=== PATIENT | male | born 1970 | race Caucasian/White ===

== ENCOUNTER 2018-02-22 12:11 | Outpatient (CLI) | payer MEDICAID, SELFPAY ==
[2018-02-22 13:35] LABS: Cholesterol 179 mg/dL (50-200); Glucose 81 mg/dL (70-100); HDL Cholesterol 40 mg/dL (40-60); LDL CHOLESTEROL 128 mg/dL (<100); Triglyceride 136 mg/dL (30-150)
== END 2018-02-22 12:31 ==
PROVIDERS: PCP General Practice; Visit Provider General Practice
DX: R51 Headache (principal); Z13.220 Encounter for screening for lipoid disorders; Z13.1 Encounter for screening for diabetes mellitus
CPT/HCPCS: 36415; 80061; 82947; 83721

== ENCOUNTER 2018-03-29 14:35 | Outpatient (CLI) | payer MEDICAID, SELFPAY ==
--- NOTE | 2018-03-29 14:23 | DI.RAD_ITS ---
SYMPTOMS/DIAGNOSIS: PAIN ZAIRA SHOULDERS AND LT ELBOW LEFT SHOULDER: Allowing for artifact generated by the patient's clothing, no bony or joint abnormality is seen. LEFT ELBOW: No bony or joint abnormality is demonstrated. RIGHT SHOULDER: The bony structures and joint spaces appear intact. There is a small area of calcification adjacent to the greater tuberosity which would be consistent with peritendinitis calcarea.
== END 2018-03-29 14:55 ==
PROVIDERS: PCP General Practice; Visit Provider Physician Assistant
DX: M25.511 Pain in right shoulder (principal); M25.512 Pain in left shoulder; M25.522 Pain in left elbow
CPT/HCPCS: 73030; 73080

== ENCOUNTER 2018-07-31 15:26 | Outpatient (CLI) | payer MEDICAID, SELFPAY ==
--- NOTE | 2018-07-31 15:24 | DI.RAD_ITS ---
SYMPTOM/DIAGNOSIS: NECK PAIN CERVICAL SPINE: Frontal and lateral views were obtained. There are no priors for comparison. There is normal alignment. No acute fractures or subluxations are seen. The prevertebral soft tissues are unremarkable. IMPRESSION: Negative examination.
== END 2018-07-31 15:46 ==
PROVIDERS: PCP General Practice; Visit Provider Student in an Organized Health Care Education/Training Program
DX: M54.2 Cervicalgia (principal)
CPT/HCPCS: 72040

== ENCOUNTER 2018-08-09 00:16 | Outpatient (CLI) | payer MEDICAID, SELFPAY ==
--- NOTE | 2018-08-09 14:53 | DI.MRI_ITS ---
SYMPTOMS/DIAGNOSIS: LEFT ANTERIOR SHOULDER PAIN, M25.512, LEFT SHOULDER LESIONS, M75.82, TENDINITIS OF ROTATOR CUFF MRI OF THE LEFT SHOULDER: Routine noncontrast examination was performed. Comparison x-ray is 03/29/18. There is hyperintense signal seen in the supraspinatus tendon in its mid point suspicious for a partial tear and/or tendinosis. The infraspinatus, teres minor and subscapularis tendons are intact. The muscles show normal signal and size. No significant muscular fatty atrophy is appreciated. The glenoid labrum appears grossly unremarkable on this noncontrast examination. The biceps tendon has a normal appearance and location. There are mild degenerative changes seen at the acromioclavicular joint. No findings to suggest an occult fracture or avascular necrosis. There is a normal amount of fluid seen in the joint space. No soft tissue masses appreciated. There is a small amount of fluid seen in the subacromial bursa. The articular cartilage at the glenohumeral joint appears well maintained. IMPRESSION: 1. Tendinosis versus partial tear of the supraspinatus tendon. 2. Degenerative changes seen at the acromioclavicular joint.
== END 2018-08-09 00:36 ==
PROVIDERS: PCP General Practice; Visit Provider Student in an Organized Health Care Education/Training Program
DX: M25.512 Pain in left shoulder (principal); M75.82 Other shoulder lesions, left shoulder; M19.012 Primary osteoarthritis, left shoulder
CPT/HCPCS: 73221

== ENCOUNTER 2018-08-24 01:21 | Outpatient (CLI) | payer MEDICAID, SELFPAY ==
--- NOTE | 2018-08-24 11:12 | DI.RAD_ITS ---
SYMPTOM/DIAGNOSIS: LT SHOULDER INJECTION, TENDINITIS LT ROTATOR CUFF M75.82 LEFT SHOULDER INJECTION' Fluoroscopy Time: 18.5 Fluoroscopy was utilized by Dr. Pearson during the performance of a left shoulder injection. Please refer to the procedure report for complete details.
[2018-08-24] MEDS: Omnipaque 300 MG/ML 10 ML BTL IJ (11:14)
[2018-08-24] MEDS: methylPREDNISolone ACETATE 80 MG/ML VIAL IM (11:16)
[2018-08-24] MEDS: Bupivacaine 0.5% Pres-Free 10 ML VIAL 6 ML IJ (11:16)
--- NOTE | 2018-08-29 15:18 | W.PROCNOTE ---
Date of service: 08/24/18 Time of Service: 11:18 Procedure Note Date of procedure: 08/24/18 Procedure: Left Shoulder Injection Surgeon/Proceduralist/Physician: Yovany Pearson Procedure Diagnosis: Left Rotator Cuff Tendinitis Procedure Indications: Mo has had persistent pain of the LEFT shoulder. Noninvasive measures have been tried. To serve as both diagnostic and therapeutic, an injection under fluoroscopy was recommended. I had discussed the risks of the procedure and the patient elected to proceed. Procedure Description: Mo was greeted in the flouroscopy room. The correct side was identified and the consent was reviewed with the patient and signed. The patient was then placed in the supine position on the fluoroscopy table. The LEFT shoulder was then prepped with Chloraprep. The anterior injection starting point was identiifed by bony landmarks and fluoroscopy. The skin and soft tissue in the tract of the injection was anesthetized with 1% Lidocaine. A spinal needle was then inserted deep into the shoulder joint at the level of the recess between the glenoid and superior humeral head. A small amount of Omnipaque solution was injected to confirm intraarticular placement. Once confirmed, the shoulder was injected with 4cc of 0.5% Bupivicaine and 80mg of Depo-Medrol. A bandaid was placed on the injection site. The patient tolerated the procedure well and noted improvement in pre-injection pain.
== END 2018-08-24 01:41 ==
PROVIDERS: PCP General Practice; Visit Provider Student in an Organized Health Care Education/Training Program
DX: M25.512 Pain in left shoulder (principal); M75.82 Other shoulder lesions, left shoulder
CPT/HCPCS: 20610; 77002; J1040

== ENCOUNTER 2018-09-07 00:35 | Outpatient (CLI) | payer MEDICAID, SELFPAY ==
--- NOTE | 2018-09-07 06:44 | DI.RAD_ITS ---
SYMPTOM/DIAGNOSIS: TENDINITIS RT ROTATOR CUFF, M75.81, OTHER SHOULDER LESION, RT, RT SHOULDER INJECTION RIGHT SHOULDER INJECTION: Fluoroscopy Time: 4 seconds A frontal image of the right shoulder reveals a joint injection by Dr. Pearson. Please see the procedure report for further information.
[2018-09-07] MEDS: Bupivacaine 0.5% Pres-Free 10 ML VIAL 6 ML IJ (09:10)
[2018-09-07] MEDS: methylPREDNISolone ACETATE 80 MG/ML VIAL IM (09:11)
[2018-09-07] MEDS: Omnipaque 300 MG/ML 10 ML BTL IJ (09:11)
--- NOTE | 2018-09-07 09:51 | W.PROCNOTE ---
Date of service: 09/07/18 Time of Service: 09:51 Procedure Note Date of procedure: 09/07/18 Procedure: Right Shoulder Injection Surgeon/Proceduralist/Physician: Yovany Pearson Procedure Diagnosis: Right rotator cuff tendinitis Procedure Indications: Mo has had persistent pain of the RIGHT shoulder. Noninvasive measures have been tried. He has had pain of both shoulders and recently had a left shoulder injected with excellent results. To serve as both diagnostic and therapeutic, an injection under fluoroscopy was recommended. I had discussed the risks of the procedure and the patient elected to proceed. Procedure Description: Mo was greeted in the flouroscopy room. The correct side was identified and the consent was reviewed with the patient and signed. The patient was then placed in the supine position on the fluoroscopy table. The RIGHT shoulder was then prepped with Chloraprep. The anterior injection starting point was identiifed by bony landmarks and fluoroscopy. The skin and soft tissue in the tract of the injection was anesthetized with 1% Lidocaine. A spinal needle was then inserted deep into the shoulder joint at the level of the recess between the glenoid and superior humeral head. A small amount of Omnipaque solution was injected to confirm intraarticular placement. Once confirmed, the shoulder was injected with 4cc of 0.5% Bupivicaine and 80mg of Depo-Medrol. A bandaid was placed on the injection site. The patient tolerated the procedure well and noted improvement in pre-injection pain.
== END 2018-09-07 00:55 ==
PROVIDERS: PCP General Practice; Visit Provider Student in an Organized Health Care Education/Training Program
DX: M25.511 Pain in right shoulder (principal); M75.81 Other shoulder lesions, right shoulder
CPT/HCPCS: 20610; 77002; J1040

== ENCOUNTER 2020-09-15 04:07 | Outpatient (CLI) | payer MEDICAID, SELFPAY ==
[2020-09-15 09:53] LABS: Source Nasal/Nares
[2020-09-15 15:17] LABS: COVID-19 PCR Positive (Negative)
== END 2020-09-15 04:08 | disposition home or self-care (01) ==
LOC: LBO 04:07
PROVIDERS: PCP Registered Nurse; Visit Provider Surgery
DX: Z20.822 Contact with and (suspected) exposure to COVID-19 (principal); Z01.818 Encounter for other preprocedural examination
CPT/HCPCS: 87635

== ENCOUNTER 2020-10-14 06:09 | Day surgery (SDC) | payer MEDICAID, SELFPAY ==
--- NOTE | 2020-10-13 16:08 | HPE_ITS ---
Date of service: 10/14/20 Time of Service: 07:15 Assessment and Plan Assessment and plan (1) Reducible right inguinal hernia: Status: Acute Assessment and plan: I discussed the nature of inguinal hernias with the pt . I discussed the surgery in detail and the complications related to the surgery and the anesthesia. Pt. understands this, all questions were answered to the patient satisfaction and they signed the consent for surgery. Patient was given an educational booklet. Risks of the surgery include but are not limited to: Bleeding/infection/pneumonia/damage to blood vessels or bladder or bowels/blood clots or PE/chronic pain/urinary retention/chronic numbness/reoccurrence/reaction to mesh requiring removal/damage to testicle or sterility/complications of anesthesia. The pt will have a pre-Op PE with his/her PCP to ensure fitness for anesthesia. The procedure will be done with abx and under sterile conditions. The pt requires a ride home from surgery and someone to stay with the pt for 24 hrs after anesthesia. No lifting over 5 pounds for 2 weeks after surgery. History of Present Illness Consults Consult date: 10/14/20 Narrative: He does heavy lifting. He is having mild discomfort. He denies straiing to move his bowels or urinate. He is a reformed smoker. No problems w/ anesthesia. He is a reformed smoker He thinks it started around the holidays. There was not one specific event. He has noticed a bulge. He did have covid and we had to re-schedule his repair He has no residual affects from covid. He has had mild pain in his hernia. site is marked all questions stable for procedure. Review of Systems All systems reviewed & are unremarkable except as noted in HPI and below PFSH Medical History (Updated 10/14/20 @ 06:33 by Simi Barahona RN) Abstains from alcohol consumption Ex-smoker Genital herpes simplex H/O fracture of tibia L Tib/Fib ORIF, metal removed Right inguinal hernia S/P ORIF (open reduction internal fixation) fracture Left tibia/fibula Surgical History History of vasectomy Social History Smoking/Tobacco Use Status: Former Tobacco Use Quit Date: 06/13/05 Smoking risk assessment performed?: Yes Alcohol Intake: never Drug use: Never Substance use type: does not use Household members: spouse and children Housing: house Number of Children: 3 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 Meds Allergies and Home Medications Allergies Allergy/AdvReac Type Severity Reaction Status Date / Time Penicillins Allergy as a child Verified 10/14/20 06:33 codeine AdvReac Nausea Verified 10/14/20 06:33 Home Medications Medication Instructions Recorded Confirmed Type valacyclovir 500 mg tablet 500 mg PO DAILY 09/14/18 10/14/20 History cholecalciferol (vitamin D3) 50 150 mcg PO DAILY cap 09/01/20 10/14/20 History mcg (2,000 unit) capsule magnesium 250 mg tablet 250 mg PO DAILY 09/01/20 10/14/20 History multivitamin 1 tab PO DAILY 09/01/20 10/14/20 History zinc 50 mg tablet 50 mg PO DAILY 09/01/20 10/14/20 History Exam Const General: cooperative, healthy appearing, comfortable, no acute distress, well developed and well groomed Nutritional Appearance: average body habitus and well nourished Orientation: alert, awake and oriented x3 HENMT Head: normal to inspection, normocephalic and atraumatic Ears: hearing grossly normal bilaterally and external ears normal General nose exam: external nose normal Face and sinus: normal facial exam and sinuses nontender Mouth: oral mucosae normal, lip normal, tongue normal and moist mucous membranes Teeth and gingiva: dentition normal Eyes General: appearance normal, both eyes and all related structures Conjunctivae: conjunctivae normal Sclera: sclerae normal Pupils: PERRL Neck Neck: normal visual inspection and full ROM Chest Chest: normal inspection of the chest Resp Effort & Inspection: normal respiratory effort, able to speak in complete sentences, no cough, no nasal flaring, not tachypneic and no use of accessory mu scles Auscultation: clear to auscultation bilaterally, no rales, no rhonchi and no wheezes Cardio Jugular venous pressure: no JVD Rate: regular rate Rhythm: regular rhythm GI Inspection: normal to inspection, no edema and non-distended Palpation: soft, no masses, nontender and No ascites Auscultation: normal bowel sounds Other: right inguinal hernia Skin General skin exam: no rashes or lesions noted Trauma: no lacerations or abrasions Neuro General: patient alert, patient oriented x3, oriented, gait normal, moves all extremities, no focal motor deficits and CN's II-XI intact bilaterally Cognition: normal cognition Speech: speech normal Gait: normal gait Motor: muscle tone normal throughout Extrem General: normal to inspection, full ROM and no clubbing, cyanosis or edema Psych Appearance: grossly normal and well kempt Mental Status: mental status grossly normal Speech and Movement: speech and movement normal Affect: normal affect COVID-19 Screening Have you, or household traveled for leisure in last 14 days?: No Had IN PERSON contact w/suspected or confirmed C-19 person: No
[2020-10-14] VITALS (9 sets, daily range): BP systolic 94–114; BP diastolic 54–74; PULSE 58–80; RESP 12–16; TEMP 36–36.6; O2SAT 94–99; BMI 26.7
[2020-10-14] MEDS: Acetaminophen 500 MG TAB 1000 MG PO (06:45)
[2020-10-14] MEDS: Gabapentin 300 MG CAP PO (06:45)
[2020-10-14] MEDS: Lactated Ringers 1,000 ML 80 ML IV (06:59)
--- NOTE | 2020-10-14 07:02 | W.ANESPRE ---
General Info Date of Service Date Performed: 10/14/20 Height: 6 ft 2 in Weight: 94.4 kg Body Mass Index (BMI): 26.7 Surgical Procedure: Operation Date: 10/14/20 07:40 Proposed Procedures Side Surgeon p Herniorraphy Inguinal Right Lacie Salmeron, Meds Allergies and Home Medications Allergies Allergy/AdvReac Type Severity Reaction Status Date / Time Penicillins Allergy as a child Verified 10/14/20 06:33 codeine AdvReac Nausea Verified 10/14/20 06:33 Home Medication Medication Instructions Recorded valacyclovir 500 mg tablet 500 mg PO DAILY 09/14/18 cholecalciferol (vitamin D3) 50 150 mcg PO DAILY cap 09/01/20 mcg (2,000 unit) capsule magnesium 250 mg tablet 250 mg PO DAILY 09/01/20 multivitamin 1 tab PO DAILY 09/01/20 zinc 50 mg tablet 50 mg PO DAILY 09/01/20 Current Visit Medications: Current Medications Generic Name Dose Route Start Last Admin Trade Name Freq PRN Reason Stop Dose Admin Acetaminophen 1,000 mg 10/14/20 06:00 10/14/20 06:45 Acetaminophen 500 Mg Tab PO 11/12/20 23:59 1,000 mg PREOP KATALINA Administration Gabapentin 300 mg 10/14/20 06:00 10/14/20 06:45 Gabapentin 300 Mg Cap PO 11/12/20 23:59 300 mg PREOP KATALINA Administration Ringer's Solution 1,000 mls @ 80 mls/hr 09/16/20 06:00 10/14/20 06:59 IV 10/15/20 23:59 80 mls/hr INFUSION KATALINA Administration Clindamycin Phosphate/Dextrose 600 mg in 50 mls @ 100 mls/hr 10/14/20 06:00 Cleocin In D5w IVPB 10/14/20 23:59 PREOP KATALINA IV Miscellaneous Supplies 1 each 09/16/20 06:00 Iv Access IV 10/15/20 23:59 DIRECTED KATALINA Sodium Chloride 0 ml 09/16/20 06:00 Normal Saline Flush 10 Ml Syr IV 10/15/20 23:59 PRN PRN Sodium Chloride 0 ml 09/16/20 06:00 Normal Saline 10 Ml Vial IJ 10/15/20 23:59 DIRECTED PRN Sterile Water 0 ml 09/16/20 06:00 Water,Injection,Sterile 10 Ml Vial IJ 10/15/20 23:59 DIRECTED PRN PFSH Active Problems Active Problems: Problem Status Onset Code Tendinitis of left rotator cuff M75.82 Tendinitis of right rotator cuff M75.81 Left lateral epicondylitis M77.12 Reducible right inguinal hernia K40.90 Medical History Medical History (Updated 10/14/20 @ 06:33 by Simi Barahona, EDOUARD) Abstains from alcohol consumption Ex-smoker Genital herpes simplex H/O fracture of tibia L Tib/Fib ORIF, metal removed Right inguinal hernia S/P ORIF (open reduction internal fixation) fracture Left tibia/fibula Surgical History Surgical History History of vasectomy Tobacco Smoking/Tobacco Use Status: Former Tobacco Use Alcohol Alcohol Intake: never Substance Use Substance use: Never Substance use type: does not use Vital Signs and Lab Results Vital Signs Most Recent Vital Signs in EMR: Most Recent Vital Signs Temp Pulse Resp BP Pulse Ox 36.4 C L 80 16 114/74 97 10/14/20 06:24 10/14/20 06:24 10/14/20 06:24 10/14/20 06:24 10/14/20 06:24 Lab Results Blood Type / Crossmatch: No Data to Display Complete Blood Count: No Data to Display Complete Metabolic Panel: Glucose Level 81 mg/dL (70-100) 02/22/18 12:30 02/22/18 Liver Function Panel: No Data to Display Coagulation Panel: No Data to Display Cardiac Panel: No Data to Display Arterial Blood Gas: No Data to Display Venous Blood Gas: No Data to Display Pancreas Panel: No Data to Display Thyroid Panel: No Data to Display Infectious Disease: Coronavirus (COVID-19)(PCR) Positive (Negative) A* 09/15/20 08:51 09/15/20 Coronavirus 2019 Source Nasal/nares 09/15/20 08:51 09/15/20 Blood Cultures: No Data to Display Toxicology Panel: No Data to Display Anesthesia Assessment and Plan Anesthesia History Personal History: No History of Anesthesia Complications Family History: No Family History of Anesthesia Complications Exercise Tolerance Exercise Tolerance: Metabolic Equivalents>4 Pertinent Negatives Pertinent Negatives: No Symptoms of GERD and No Major Cardiovascular Symptoms or Complaints Cardiac & Pulmonary Exam Cardiac Exam: Normal S1/S2 Heart Sounds Pulmonary Exam: Clear Bilateral Breath Sounds and Seasonal Allergies Airway Exam Known Difficult Airway: No Mallampati Class: 2 Mouth Opening: Normal (> 3cm) Thyromental Distance: Greater than 3 cm Neck Range of Motion: Full ROM Neck Circumference: Normal Teeth Condition: Normal Dentition ASA Classification ASA Score: ASA 2 ASA Emergency: No NPO Status NPO Status: NPO Clears >2 hours, Solids >8 hours Anesthesia Plan Anesthesia Technique: General Anesthesia Airway Planned: LMA Pain Management: Surgeon and patient request nerve block Monitors Used: Standard Monitors
[2020-10-14] MEDS: ceFAZolin 2 GM/50 ML BAG IVPB (07:40)
--- NOTE | 2020-10-14 07:58 | DSU.FORM ---
While patient went to empty his bladder prior to going to the OR, the ABX Clindamycin 600mg fell and the tubing came out of the bag which emptied all over the floor. Pharmacy informed (Elzbieta). Dr. Salmeron changed order to Ancef 2 grams which was pulled out of the Pyxis and brought to the OR by Robert Kyle RN.
--- NOTE | 2020-10-14 08:19 | W.ANESNERVE ---
Nerve Block Single Injection Procedure Date and Time Date Performed: 10/14/20 Procedure Start: 07:53 Location Where Procedure Performed Procedure Location: Operating Room Procedure Stop: 07:58 Reason Performed: Postoperative Analgesia Requesting Provider: Lacie Salmeron Timeout Performed Timeout Performed: Yes Monitoring Used ECG, Blood Pressure, SpO2, ETCO2 and See EMR for corresponding vital signs Sterility Sterility: Hand Hygiene, Surgical Cap, Surgical Mask, Sterile Gloves and Chlorhexidine Sedation Given During Procedure Sedation Given (Indicate Dose Given): No Sedation given Patient Mental Status Patient Mental Status: Performed under general anesthesia Nerve Block 1st Nerve Block: Laterality: Right Block Type: TAP Unilateral Needle / Catheter Used: 100mm SonoPlex II Local Anesthetic Bolus (Indicate Dose Given): Injected in 3-5ml increments after negative blood aspiration, Bupivacaine 0.25% (30ml) and Exparel (10ml) Additives (Indicate Dose Given): None Ultrasound: Sterile probe cover and gel used Ultrasound Image Saved?: Yes Nerve Stimulator: Not Used Paresthesia: None Procedure Tolerated: No Complications Procedure Outcome: Successful Performed By: Caio Loredo
[2020-10-14] MEDS: Bupivacaine LIPOSOME/PF 133 MG/10 ML VIAL IJ (08:51)
[2020-10-14] MEDS: Bupivacaine 0.25% Pres-Free 30 ML VIAL (08:54)
--- NOTE | 2020-10-14 09:14 | PDOC.DSDIS_ITS ---
Discharge Plan Disposition Patient Disposition: HOME Condition: Good Discharge Details Reason For Visit: HERNIA REPAIR Attending Provider: Lacie Salmeron Primary Care Provider: Carolynn Rodriges Home Meds and New Rx's Prescriptions: New tramadol 50 mg tablet 50 mg PO Q6H PRNQty: 14 RF: 0 Continued valacyclovir [Valtrex] 500 mg tablet 500 mg PO DAILY RF: 0 cholecalciferol (vitamin D3) 50 mcg (2,000 unit) capsule 150 mcg PO DAILY RF: 0 multivitamin [Multiple Vitamins] Tablet 1 tab PO DAILY RF: 0 magnesium 250 mg tablet 250 mg PO DAILY RF: 0 zinc 50 mg tablet 50 mg PO DAILY RF: 0 Discharge Instructions Additional Instructions: Dr. Salmeron HERNIA REPAIR ? POSTOPERATIVE INSTRUCTIONS Patients who have this type of surgery can usually be expected to return to work within two weeks and have minimal amounts of discomfort. ? ACTIVITY: The day of surgery should be spent resting. However, you can be up for short periods of time, I.E., going to the bathroom or kitchen. Avoid lifting or straining. On the day following surgery, you can be up and about as desired. ? LIFTING: Restrict your lifting to no more than five (5) pounds for the first week following surgery. For the second week after surgery, don?t lift more than ten pounds. We will decide when you are done with restrictions and when you can return to work, at your follow-up appointment. No sexual activity for two we eks. ? DIET: There are no dietary restrictions following surgery. However, you may want to start with small amounts of liquids to avoid nausea the day of surgery. ? INCISION CARE: You will notice purple skin glue closing the incision. Do not peel this off- it will wear off on its own. After 24 hours you may shower. The dressing may be replaced for comfort, but is not necessary. An ice bag may be applied to the incision for 72 hours following surgery. ? SIGNS OF INFECTION: It is not unusual to have some black and blue discoloration of the skin around the incision, but also scrotum and penis. It will slowly disappear. If you have any increased redness, drainage, fever (above 100 degrees), please contact your doctor for an examination. ? DISCOMFORT: You may expect to have some mild discomfort at the incision sight. If severe pain develops you should contact your doctor for further instructions. ? URINATION: Patients who have surgery occasionally have problems urinating. If you experience problems and are not able to urinate within 6 hours following your surgery, please call your doctor immediately or go to your nearest Emergency Room for evaluation. ? DRIVING: NO driving for three (3) days after surgery, or if you are still taking narcotic pain medication. ? MEDICATIONS: Alternate Tylenol 1000mg by mouth every 8 hours and Ibuprofen 600mg every 6 hours. Make sure you take ibuprofen with food and not on an empty stomach. Take the Tylenol and ibuprofen continuously for the first 72hrs- not just when you have pain. Use the tramadol for breakthrough pain. Use ICE! Tw enty minutes on, and then off, continuously for the first 72hours. If you are taking narcotic pain medication, follow the instructions on the label and do not drive. Pain medications can make you very constipated. Make sure you are moving your bowels daily. If not, take Miralax, milk of magnesia or magnesium citrate. Anesthesia makes you very constipated. Take a dose of milk of magnesia the mor wilian after surgery. ? REPORT: Unusual swelling, severe pain, unresolved nausea, signs of infection, or difficulty in urination to your surgeon. Follow up in clinic with Dr. Salmeron in 1-2 weeks. [phone] Activity:: see above Remove Dressings/Wound Care:: 24 hours Shower/Bathe:: 24 hours Diet:: As Tolerated Discharge Orders Discharge Orders: Discharge Order (Routine); Ordered 10/14/20 Ordered By: Lacie Salmeron DS: Diagnosis Discharge Diagnosis (1) Reducible right inguinal hernia: Status: Acute
--- NOTE | 2020-10-14 09:19 | ROE_ITS ---
Date of service: 10/14/20 Time of Service: 09:19 Operative Note Operative Note DATE OF PROCEDURE: 10/14/20 PRE-OP DIAGNOSIS: right inguinal hernia POST-OP DIAGNOSIS: other (indirect ) PROCEDURE: open repair w/ mesh SURGEON: Lacie Zambrano ANESTHESIA TYPE: General LMA/ETT Refer to Anesthesia Record ESTIMATED BLOOD LOSS: 5 PATHOLOGY: none sent COMPLICATIONS: None Patient was transported to: PACU Patient's condition: stable Implants: see Rn notes Procedure Description: INDICATIONS: The pt is here today for surgery regarding symptomatic right inguinal hernia that has failed outpatient conservative medical management and he is here today for repair. Informed consent was obtained, explaining risks and benefits of the procedure including but not limited to bleeding, infection, pneumonia, blood clots, chronic pain, chronic numbness, damage to testicle resulting in removal, recurrence of hernia, reaction to Mesh necessitating removal, and other unforetold complications, and complications of anesthesia-which were addressed by the DIRECT SUPPORT SPECIALIST. The patient is marked in preOp prior to the procedure DESCRIPTION OF PROCEDURE: The pt is then brought to the operative room suite. Anesthesia was administered per the Department of Anesthesia. A nerve block was performed by anesthesia under US guidance. The patient was prepped and draped in the usual sterile fashion using ChloraPrep scrub solution. Pause for the cause was done. He did receive preop IV antibiotics, and 30 mL of .25% Marcaine w/ epinephrine was used for local anesthetization. A #12 blade was used to make an incision over the external ring. Electrocautery used to provide hemostasis and dissect down to the fascia. The fascia was pretty much obliterated and there was nothing to open. The cord is elevated. The nerve was not identified. There small is a cord lipomas- which is excised. Electro-cautery is used to provide hemostasis. A Prabha drain was placed around the cord to assist in mobilization. The cord was explored. There was is an indirect hernia sac on the cord. There is no direct hernia pushing through the floor. The hernia sac is dissected off the cord using a combination of blunt dissection and electrocautery. Electrocautery is used to provide hemostasis. There are no contents within the hernia sac. The hernia sac is than inverted and returned to the abdominal cavity. A lg size plug is than inserted into the defect through the internal ring, and over sewn to tighten up the ring with 2-0 vicryl. Please see RN notes from Lot number of the Bard mesh patch/plug. The cord structures are still able to freely move through the ring itself. The patch was then placed onto the floor, and using 2-0 Vicryl, sewn into the pubic tubercle and the shelving portions of the inguinal ligament, in the standard Lichenstein fashion. The tails of the mesh are brought around the cord, sewn together w/ 2-0 Vicryl, and tucked under the external oblique. The wound was copiously irrigated. There was no bleeding noted. The drain was removed. All structures are returned to normal anatomical position. The nerve is not sewn into the mesh, nor caught up in any sutures. The external oblique is re-approximated using 2-0 vicryl in a running fashion. Deep tissue was approximated with 3-0 Vicryl in a running fashion, and skin was approximated with 4-0 Monocryl in a running subcuticular fashion. Skin glue and sterile dressings are applied. The patient tolerated the procedure without complications to recovery in stable condition. LACIE ZAMBRANO, DO
[2020-10-14] MEDS: traMADol 50 MG TAB PO (10:41)
--- NOTE | 2020-10-14 10:42 | W.ANESPOSTOP ---
Postoperative Evaluation Date, Time and Location Date Performed: 10/14/20 Time Performed: 10:42 Patient Location: Day Surgery Unit Vital Signs Most Recent Imported Vital Signs: Most Recent Vital Signs Temp Pulse Resp BP Pulse Ox 36.0 C L 63 16 100/67 99 10/14/20 09:59 10/14/20 09:59 10/14/20 09:59 10/14/20 09:59 10/14/20 09:59 Pain Score Most Recent Pain Score: Most Recent Pain Score Pain Level 0 10/14/20 09:47 Assessment Mental Status: Awake (Alert & Oriented to Patient Baseline) Airway and Respiratory Function: Patent airway with normal (patient baseline) respiratory exam Cardiovascular Function: Hemodynamically Stable Hydration Status: Adequately Hydrated Nausea & Vomiting: No Nausea or Vomiting Pain: Pt. Denies Any Pain Peripheral Nerve Block: Regional nerve block not resolved at time of post operative discharge
--- NOTE | 2020-10-14 11:04 | PDOC.DSDIS_ITS ---
Discharge Plan Disposition Patient Disposition: HOME Condition: Good Discharge Details Reason For Visit: HERNIA REPAIR Attending Provider: Lacie Salmeron Primary Care Provider: Carolynn Rodriges Home Meds and New Rx's Prescriptions: New oxycodone 5 mg capsule 5 mg PO Q6H PRNQty: 10 RF: 0 Continued valacyclovir [Valtrex] 500 mg tablet 500 mg PO DAILY RF: 0 cholecalciferol (vitamin D3) 50 mcg (2,000 unit) capsule 150 mcg PO DAILY RF: 0 multivitamin [Multiple Vitamins] Tablet 1 tab PO DAILY RF: 0 magnesium 250 mg tablet 250 mg PO DAILY RF: 0 zinc 50 mg tablet 50 mg PO DAILY RF: 0 Discharge Instructions Additional Instructions: Dr. Salmeron HERNIA REPAIR ? POSTOPERATIVE INSTRUCTIONS Patients who have this type of surgery can usually be expected to return to work within two weeks and have minimal amounts of discomfort. ? ACTIVITY: The day of surgery should be spent resting. However, you can be up for short periods of time, I.E., going to the bathroom or kitchen. Avoid lifting or straining. On the day following surgery, you can be up and about as desired. ? LIFTING: Restrict your lifting to no more than five (5) pounds for the first week following surgery. For the second week after surgery, don?t lift more than ten pounds. We will decide when you are done with restrictions and when you can return to work, at your follow-up appointment. No sexual activity for two we eks. ? DIET: There are no dietary restrictions following surgery. However, you may want to start with small amounts of liquids to avoid nausea the day of surgery. ? INCISION CARE: You will notice purple skin glue closing the incision. Do not peel this off- it will wear off on its own. After 24 hours you may shower. The dressing may be replaced for comfort, but is not necessary. An ice bag may be applied to the incision for 72 hours following surgery. ? SIGNS OF INFECTION: It is not unusual to have some black and blue discoloration of the skin around the incision, but also scrotum and penis. It will slowly disappear. If you have any increased redness, drainage, fever (above 100 degrees), please contact your doctor for an examination. ? DISCOMFORT: You may expect to have some mild discomfort at the incision sight. If severe pain develops you should contact your doctor for further instructions. ? URINATION: Patients who have surgery occasionally have problems urinating. If you experience problems and are not able to urinate within 6 hours following your surgery, please call your doctor immediately or go to your nearest Emergency Room for evaluation. ? DRIVING: NO driving for three (3) days after surgery, or if you are still taking narcotic pain medication. ? MEDICATIONS: Alternate Tylenol 1000mg by mouth every 8 hours and Ibuprofen 600mg every 6 hours. Make sure you take ibuprofen with food and not on an empty stomach. Take the Tylenol and ibuprofen continuously for the first 72hrs- not just when you have pain. Use the tramadol for breakthrough pain. Use ICE! Tw enty minutes on, and then off, continuously for the first 72hours. If you are taking narcotic pain medication, follow the instructions on the label and do not drive. Pain medications can make you very constipated. Make sure you are moving your bowels daily. If not, take Miralax, milk of magnesia or magnesium citrate. Anesthesia makes you very constipated. Take a dose of milk of magnesia the mor wilian after surgery. ? REPORT: Unusual swelling, severe pain, unresolved nausea, signs of infection, or difficulty in urination to your surgeon. Follow up in clinic with Dr. Salmeron in 1-2 weeks. [phone] Stand Alone Forms: Anesthesia Discharge Inst. Activity:: see above Remove Dressings/Wound Care:: 24 hours Shower/Bathe:: 24 hours Diet:: As Tolerated Discharge Orders Discharge Orders: Discharge Order (Routine); Ordered 10/14/20 Ordered By: Lacie Salmeron DS: Diagnosis Discharge Diagnosis (1) Reducible right inguinal hernia: Status: Acute
== END 2020-10-14 12:05 | disposition home or self-care (01) ==
PROVIDERS: PCP Registered Nurse; Visit Provider Surgery
PROC: (CPT 49505; principal; 2020-10-14 07:30)
DX: K40.90 Unilateral inguinal hernia, without obstruction or gangrene, not specified as recurrent (principal)
CPT/HCPCS: 49505; 76942; C1781; J0690; J1100; J1885; J2250; J2405; J2704

== ENCOUNTER 2021-01-01 16:27 | Emergency (ER) | payer MEDICAID, SELFPAY ==
[2021-01-01 16:34] VITALS: BP 126/81; PULSE 82; TEMP 37.2; O2SAT 98
--- NOTE | 2021-01-01 17:30 | DI.RAD_ITS ---
Exam(s) XR FINGER RT MIDDLE EXAM: XR FINGER RT MIDDLE CLINICAL HISTORY: Laceration, R/O Fracture Foreign body. TECHNIQUE: 2D digital imaging was performed. COMPARISON: No exams were available for comparison FINDINGS: BONES: No acute fracture is present. No bony destructive lesion is seen. JOINTS: No dislocation present. SOFT TISSUE: Gauze around finger. No visible foreign body. IMPRESSION: No evidence of acute fracture, dislocation, or foreign body. DATA REPOSITORY: RADIATION DOSE DELIVERED:
--- NOTE | 2021-01-01 17:35 | W.ED.GENAD ---
Discharge Plan Disposition Patient Disposition: HOME Condition: Stable Discharge Details Clinical Impression: Laceration of finger, right Primary Care Provider: Carolynn Rodriges ED Provider: Zachary Albarran Home Meds and New Rx's Prescriptions: Continued valacyclovir [Valtrex] 500 mg tablet 500 mg PO DAILY RF: 0 cholecalciferol (vitamin D3) 50 mcg (2,000 unit) capsule 150 mcg PO DAILY RF: 0 multivitamin [Multiple Vitamins] Tablet 1 tab PO DAILY RF: 0 magnesium 250 mg tablet 250 mg PO DAILY RF: 0 zinc 50 mg tablet 50 mg PO DAILY RF: 0 Discharge Instructions Instructions: Finger Laceration (ED) Additional Instructions: Please return to the emergency department or see your primary care physician for suture removal in 12 days. Return to the ER for any worsening or new concerning symptoms. Referrals: Carolynn Rodriges, [employer] [Primary Care Provider] - Medical Decision Making Upon initial exam patient has a dressing in place let was applied prior to my exam. HPI General Mode of arrival: ambulatory. Date/Time Provider Initiated Documentation: 01/01/21 16:28. Limitations to Documentation: no limitations. Information obtained by: patient and RN notes reviewed. HPI Narrative: 50-year-old male presents to the ER with chief complaint of right middle finger laceration which occurred approximately 2 and half hours prior to arrival. 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 Last tetanus vaccination was 2 years ago. He denies being on any aspirin or blood thinners. No other complaints at this time. Related Data Home Medications Medication Instructions Recorded Confirmed valacyclovir 500 mg tablet 500 mg PO DAILY 09/14/18 01/01/21 cholecalciferol (vitamin D3) 50 150 mcg PO DAILY cap 09/01/20 01/01/21 mcg (2,000 unit) capsule magnesium 250 mg tablet 250 mg PO DAILY 09/01/20 01/01/21 multivitamin 1 tab PO DAILY 09/01/20 01/01/21 zinc 50 mg tablet 50 mg PO DAILY 09/01/20 01/01/21 Allergies Allergy/AdvReac Type Severity Reaction Status Date / Time Penicillins Allergy as a child Verified 01/01/21 16:39 codeine AdvReac Nausea Verified 01/01/21 16:39 General Stated Complaint: Laceration DENA: 3 [facility] Medical History (Updated 01/01/21 @ 17:46 by Zachary Albarran MD) Abstains from alcohol consumption Ex-smoker Genital herpes simplex H/O fracture of tibia L Tib/Fib ORIF, metal removed Right inguinal hernia Surgical History (Updated 10/22/20 @ 12:54 by Debora Lugo RN) History of right inguinal hernia repair (~10/14/20) History of vasectomy S/P ORIF (open reduction internal fixation) fracture Left tibia/fibula Social History Smoking/Tobacco Use Status: Former Tobacco Use Quit Date: 06/13/05 Smoking risk assessment performed?: Yes Alcohol Intake: never Drug use: Never Substance use type: does not use Household members: spouse and children Housing: house Number of Children: 3 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
--- NOTE | 2021-01-01 17:43 | ED.GENADUL_ITS ---
Discharge Plan Disposition Patient Disposition: HOME Condition: Stable Discharge Details Clinical Impression: Laceration of finger, right Primary Care Provider: Carolynn Rodriges ED Provider: Zachary Albarran Home Meds and New Rx's Prescriptions: Continued valacyclovir [Valtrex] 500 mg tablet 500 mg PO DAILY RF: 0 cholecalciferol (vitamin D3) 50 mcg (2,000 unit) capsule 150 mcg PO DAILY RF: 0 multivitamin [Multiple Vitamins] Tablet 1 tab PO DAILY RF: 0 magnesium 250 mg tablet 250 mg PO DAILY RF: 0 zinc 50 mg tablet 50 mg PO DAILY RF: 0 Discharge Instructions Instructions: Finger Laceration (ED) Additional Instructions: Change dressing daily as discussed. Use sterile dressing. Please return to the emergency department or see your primary care physician for suture removal in 12 days. Return to the ER for any worsening or new concerning symptoms. Referrals: Carolynn Rodriges, SULFONATION EQUIPMENT OPERATOR [Primary Care Provider] - Medical Decision Making 50-year-old male here with right third digit laceration on sheet-metal. Wound oozing blood. Extensor tendons intact. Distal motor and sensation intact. Tetanus utd. Digital block performed after informed consent. X-ray of the right digit interpreted by me: no fb, no fx Wound irrigated with copious sterile saline. Deep structures intact. Wound closed. Sterile dressing applied. Usual and customary d/c instructions reviewed with patient. HPI General Mode of arrival: ambulatory . Date/Time Provider Initiated Documentation: 01/01/21 16:28 . Limitations to Documentation: no limitations . Information obtained by: patient and RN notes reviewed . HPI Narrative: 50-year-old male here with right third digit finger laceration that occurred at 2 PM today. Patient notes he was working with sheet metal and accidentally cut his posterior finger. Wound was bleeding. Bleeding improved with dressing which he is maintained. No associated numbness or weakness. Laceration was mod erate. Related Data Home Medications Medication Instructions Recorded Confirmed valacyclovir 500 mg tablet 500 mg PO DAILY 09/14/18 01/01/21 cholecalciferol (vitamin D3) 50 150 mcg PO DAILY cap 09/01/20 01/01/21 mcg (2,000 unit) capsule magnesium 250 mg tablet 250 mg PO DAILY 09/01/20 01/01/21 multivitamin 1 tab PO DAILY 09/01/20 01/01/21 zinc 50 mg tablet 50 mg PO DAILY 09/01/20 01/01/21 Allergies Allergy/AdvReac Type Severity Reaction Status Date / Time Penicillins Allergy as a child Verified 01/01/21 16:39 codeine AdvReac Nausea Verified 01/01/21 16:39 General Stated Complaint: Laceration DENA: 3 Review of Systems Musculoskeletal Musculoskeletal: Reports as per HPI Integumentary/Breasts Skin/Breast: Reports as per HPI Neurologic Neurologic: Reports as per HPI [facility] Medical History Abstains from alcohol consumption Ex-smoker Genital herpes simplex H/O fracture of tibia L Tib/Fib ORIF, metal removed Right inguinal hernia Surgical History History of right inguinal hernia repair (~10/14/20) History of vasectomy S/P ORIF (open reduction internal fixation) fracture Left tibia/fibula Social History Smoking/Tobacco Use Status: Former Tobacco Use Quit Date: 06/13/05 Smoking risk assessment performed?: Yes Alcohol Intake: never Drug use: Never Substance use type: does not use Household members: spouse and children Housing: house Number of Children: 3 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 Exam Skin Trauma: laceration (4 cm linear vertical laceration posterior right third digit oozing blood) Extrem Right upper extremity: hand Details: normal capillary refill, neuromotor exam normal, neurosensory exam normal, tendon exam normal, normal ROM of fingers and laceration Course Vital Signs Vital signs: Vital Signs Temperature 37.2 C 01/01/21 16:34 Pulse 82 01/01/21 16:34 Blood Pressure 126/81 01/01/21 16:34 Pulse Oximetry 98 01/01/21 16:34 Temperature 37.2 C 01/01/21 16:34 Temperature Source Temporal Artery Scan 01/01/21 16:34 Pulse 82 01/01/21 16:34 Respiratory Effort Non-Labored 01/01/21 16:38 Blood Pressure 126/81 01/01/21 16:34 Pulse Oximetry 98 01/01/21 16:34 Oxygen Delivery Method Room Air 01/01/21 16:34 Oxygen Flow Rate 0 01/01/21 16:34 Pain Level 0 01/01/21 16:34 Procedures Laceration Laceration 1: Site: hand Side (If applicable): right Size (cm): 3 Description: linear Depth: simple, single layer Pre-repair: wound explored, irrigated extensively and deep structures intact Skin layer closed with: nylon Size (cm): 4-0 Number of sutures: 6 Technique: simple, interrupted Nerve Block Nerve Block 1: Time out performed: Yes Local Anesthetic: Lidocaine 1% Amount of anesthesia used (mL): 4 Side: right Nerve Blocks: digital Patient Tolerated Procedure: well Complications: inadequate anesthesia
[2021-01-01] MEDS: Lidocaine/Epinephri/Tetracaine Topical Gel 3 ML (17:44)
== END 2021-01-01 18:54 | disposition home or self-care (01) ==
PROVIDERS: Emergency Provider Student in an Organized Health Care Education/Training Program; PCP Registered Nurse
DX: S61.212A Laceration without foreign body of right middle finger without damage to nail, initial encounter (principal); W26.8XXA Contact with other sharp object(s), not elsewhere classified, initial encounter
CPT/HCPCS: 12002; 73140

== ENCOUNTER 2023-08-14 18:26 | Emergency (ER) | payer MEDICAID, SELFPAY ==
[2023-08-14 18:28] VITALS: BP 144/102; PULSE 80; RESP 18; TEMP 36.6; O2SAT 98
--- NOTE | 2023-08-14 19:02 | W.ED.GENAD ---
Discharge Plan Disposition Patient Disposition: Home Discharge Details Clinical Impression: Laceration of skin of scalp Primary Care Provider: Chase Traore ED Provider: Kell Mills Home Meds and New Rx's Prescriptions: No Action valacyclovir [Valtrex] 500 mg tablet 500 mg PO DAILY Hold Instructions: pt states cholecalciferol (vitamin D3) 50 mcg (2,000 unit) capsule 150 mcg PO DAILY multivitamin [Multiple Vitamins] Tablet 1 tab PO DAILY magnesium 250 mg tablet 250 mg PO DAILY Discharge Instructions Instructions: Laceration (ED) Additional Instructions: [place] out in 10 days. Return to ED for severe headache, vomiting, altered mental status, any other concerns. HPI General Date/Time Provider Initiated Documentation: 08/14/23 18:38. HPI Narrative: This 53-year-old male patient presents with a chief complaint of 1.5 inch laceration to his left parietal scalp after walking into a light bulb. The light bulb actually took a section of the patient's scalp off. The patient brought in the light bulb to show us the skin and hair stuck in the edge of the bulb. The wound was cleansed well triage. patient's tetanus shot is up-to-date. He has no headache, weakness, dizziness, nausea, or vomiting. There is no neck pain. He did not pass out. Related Data Home Medications Medication Instructions Recorded Confirmed valacyclovir 500 mg tablet 500 mg PO DAILY 09/14/18 08/14/23 (Valtrex) cholecalciferol (vitamin D3) 50 150 mcg PO DAILY 09/01/20 08/14/23 mcg (2,000 unit) capsule magnesium 250 mg tablet 250 mg PO DAILY 09/01/20 08/14/23 multivitamin (Multiple Vitamins 1 tab PO DAILY 09/01/20 08/14/23 tablet) Allergies Allergy/AdvReac Type Severity Reaction Status Date / Time Penicillins Allergy as a child Verified 08/14/23 18:33 codeine AdvReac Nausea Verified 08/14/23 18:33 General Stated Complaint: Laceration DENA: 3 Review of Systems Narrative: See HPI Exam Const General: comfortable, no acute distress and well developed Nutritional Appearance: average body habitus and well nourished Orientation: alert, awake and oriented x3 HENMT Head: normocephalic and other ( 3 cm gaping lac L parietal scalp. Same oozing blood. No step offs/glass ) Face and sinus: normal facial exam Neck Neck: full ROM Resp Effort & Inspection: normal respiratory effort and able to speak in complete sentences Skin General skin exam: other (scalp lac as noted) Neuro General: patient alert, patient awake and patient oriented x3 Speech: speech normal Gait: normal gait Motor: muscle tone normal throughout Sensory Exam: no sensory deficits noted Course Vital Signs Vital signs: Vital Signs Temperature 36.6 C 08/14/23 18:28 Pulse 80 08/14/23 18:28 Respiratory Rate 18 08/14/23 18:28 Blood Pressure 144/102 H 08/14/23 18:28 Pulse Oximetry 98 08/14/23 18:28 Temperature 36.6 C 08/14/23 18:28 Temperature Source Skin 08/14/23 18:28 Pulse 80 08/14/23 18:28 Respiratory Rate 18 08/14/23 18:28 Respiratory Effort Normal, Non-Labored 08/14/23 18:33 Blood Pressure 144/102 H 08/14/23 18:28 Pulse Oximetry 98 08/14/23 18:28 Oxygen Delivery Method Room Air 08/14/23 18:28 Oxygen Flow Rate 0 08/14/23 18:28 Pain Level 3 08/14/23 18:37 Procedures Other Description: Laceration repair: 3 cm parietal scalp laceration on the left was cleansed and inspected for foreign bodies. Nothing was visible and no glass palpable. Chlorhexidine prep was used in addition to the cleansing done at triage. 4 dahlia were used to approximate the patient's wound and he tolerated this well with bleeding controlled. Staple remover to remove the dahlia in 10 days. Medical Decision Making Patient has had a lot of experience with lacerations and will remove the dahlia himself. He knows to return for fever, head injury symptoms, spreading redness, any other concerns Quality:SDOH Health Related Social Needs: No Data to Display PFSH All Active Problems Laceration of skin of scalp (Acute) Laceration of finger, right (Acute) Tendinitis of left rotator cuff (Acute) Tendinitis of right rotator cuff (Acute) Left lateral epicondylitis (Acute) Reducible right inguinal hernia (Acute) Medical History H/O fracture of tibia L Tib/Fib ORIF, metal removed Right inguinal hernia Genital herpes simplex Abstains from alcohol consumption Ex-smoker Surgical History History of right inguinal hernia repair (~10/14/20) S/P ORIF (open reduction internal fixation) fracture Left tibia/fibula History of vasectomy Social History Smoking/Tobacco Use Status: Former Tobacco Use Quit Date: 06/13/05 Smoking risk assessment performed?: Yes Alcohol Intake: never Drug use: Never Substance use type: does not use Household members: spouse and children Housing: house Number of Children: 3 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
[2023-08-14 19:23] VITALS: BP 144/102; PULSE 80; RESP 18; TEMP 36.6; O2SAT 98
== END 2023-08-14 19:23 | disposition home or self-care (01) ==
PROVIDERS: Emergency Provider Emergency Medicine; PCP Family Medicine
DX: S01.01XA Laceration without foreign body of scalp, initial encounter (principal); I10 Essential (primary) hypertension; W25.XXXA Contact with sharp glass, initial encounter
CPT/HCPCS: 12002

== ENCOUNTER 2024-04-21 20:03 | Emergency (ER) | payer MEDICAID, SELFPAY ==
[2024-04-21 20:05] VITALS: BP 132/82; PULSE 72; RESP 15; TEMP 36.8; O2SAT 98
--- NOTE | 2024-04-21 20:16 | ED.GENADUL_ITS ---
Discharge Plan Disposition Patient Disposition: Home Condition: Stable Discharge Details Clinical Impression: Knee pain, left Primary Care Provider: Chase Traore ED Provider: Rudy Wu Home Meds and New Rx's Prescriptions: Continued valacyclovir [Valtrex] 500 mg tablet 500 mg PO DAILY cholecalciferol (vitamin D3) 50 mcg (2,000 unit) capsule 150 mcg PO DAILY multivitamin [Multiple Vitamins] Tablet 1 tab PO DAILY magnesium 250 mg tablet 250 mg PO DAILY Discharge Instructions Additional Instructions: Your x-ray did not show any concerning findings at this time Follow-up with your primary care provider if pain continues in 1 to 2 weeks If you feel more ill or develop severe worsening pain or new symptoms such as high fevers return to the emergency department for reevaluation. HPI General Mode of arrival: ambulatory . Date/Time Provider Initiated Documentation: 04/21/24 20:04 . Limitations to Documentation: no limitations . Information obtained by: patient . History of Present Illness 54 year old M presents to the emergency department with the chief complaint of Left knee pain, described as moderate, Quality is described as aching, Patient started experiencing this hour(s) (2) and it has been constant. No relieving factors improve symptom(s), No exacerbating factors reported . Patient notes no other symptoms.. Patient did receive the following treatments prior to arrival, none Related Data Home Medications ?Medication ?Instructions ?Recorded ?Confirmed valacyclovir 500 mg tablet 500 mg PO DAILY 09/14/18 04/21/24 (Valtrex) cholecalciferol (vitamin D3) 50 150 mcg PO DAILY 09/01/20 04/21/24 mcg (2,000 unit) capsule magnesium 250 mg tablet 250 mg PO DAILY 09/01/20 04/21/24 multivitamin (Multiple Vitamins 1 tab PO DAILY 09/01/20 04/21/24 tablet) Allergies Allergy/AdvReac Type Severity Reaction Status Date / Time Penicillins Allergy as a child Verified 04/21/24 20:09 codeine AdvReac Nausea Verified 04/21/24 20:09 General Stated Complaint: Orthopedic DENA: 4 Review of Systems All systems reviewed & are unremarkable except as noted in HPI and below Constitutional Constitutional: Denies chills, Denies fever(s) and Denies weakness Cardiovascular Cardiovascular: Denies chest pain and Denies dyspnea Respiratory Respiratory: Denies cough and Denies dyspnea Gastrointestinal Gastrointestinal: Denies abdominal pain, Denies nausea and Denies vomiting Musculoskeletal Musculoskeletal: Denies joint swelling and Denies stiffness Neurologic Neurologic: Denies weakness Exam Const General: no acute distress Orientation: alert HENNH Head: normal to inspection Ears: external ears normal General nose exam: external nose normal Mouth: moist mucous membranes Eyes General: appearance normal, both eyes and all related structures Neck Neck: normal visual inspection Resp Effort & Inspection: normal respiratory effort and able to speak in complete sentences Cardio Rate: regular rate Skin General skin exam: no rashes or lesions noted Neuro General: patient alert and patient oriented x3 Extrem General: normal to inspection, full ROM and capillary refill normal Psych Mental Status: mental status grossly normal Course Vital Signs Vital signs: Vital Signs Temperature 36.8 C 04/21/24 20:05 Pulse 72 04/21/24 20:05 Respiratory Rate 15 04/21/24 20:05 Blood Pressure 132/82 04/21/24 20:05 Pulse Oximetry 98 04/21/24 20:05 Temperature 36.8 C 04/21/24 20:05 Temperature Source Oral 04/21/24 20:05 Pulse 72 04/21/24 20:05 Respiratory Rate 15 04/21/24 20:05 Respiratory Effort Normal 04/21/24 20:08 Blood Pressure 132/82 04/21/24 20:05 Blood Pressure Position Sitting 04/21/24 20:05 Pulse Oximetry 98 04/21/24 20:05 Oxygen Delivery Method Room Air 04/21/24 20:05 Oxygen Flow Rate 0 04/21/24 20:05 Pain Level 4 04/21/24 20:05 Medical Decision Making 54-year-old male comes in with left knee pain. He says that his knee was feeling well but was bowling tonight he twisted his left knee and has had pain in the patella since so came here for evaluation. Denies any fevers or rashes or joint swelling. He does note that 3 weeks ago he was using a nail gun when it went through the tao and also had his knee against the wood so the nail went into the patella approximately 1 and half inches. He removed his knee by himself and states that his knee was swollen for a few days after but this resolved and has not had pain since. His knee is normal in appearance, there is no swelling. He has full range of motion, intact distal sensation and pulses. There is no swelling of the leg or calf tenderness. He has tenderness over the mid patella. I suspect a knee strain will obtain x-rays to evaluate for po ssible fracture though seems unlikely given no falls. There is no findings on exam to suggest septic joint. X-ray unremarkable, patient is stable, suspect knee sprain will provide a hinged knee brace and he will follow-up with his PCP if not improving, return precautions given Differential Diagnosis Differential Diagnosis: Strain, sprain Quality:SDOH Health Related Social Needs: No Data to Display PFSH All Active Problems (Updated 04/21/24 @ 20:53 by Rudy Wu MD) Knee pain, left (Acute) Laceration of finger, right (Acute) Tendinitis of left rotator cuff (Acute) Tendinitis of right rotator cuff (Acute) Left lateral epicondylitis (Acute) Reducible right inguinal hernia (Acute) Medical History H/O fracture of tibia L Tib/Fib ORIF, metal removed Right inguinal hernia Genital herpes simplex Abstains from alcohol consumption Ex-smoker Surgical History History of right inguinal hernia repair (~10/14/20) S/P ORIF (open reduction internal fixation) fracture Left tibia/fibula History of vasectomy Social History Smoking/Tobacco Use Status: Former Tobacco Use Quit Date: 06/13/05 Smoking risk assessment performed?: Yes Alcohol Intake: never Drug use: Never Substance use type: does not use Household members: spouse and children Housing: house Number of Children: 3 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
--- NOTE | 2024-04-21 20:33 | DI.RAD_ITS ---
Exam(s) XR KNEE LT 3V AP,LAT,BELKIS EXAM: XR KNEE LT 3V AP,LAT,BELKIS CLINICAL HISTORY: pain. TECHNIQUE: 2D digital imaging was performed of the left knee. Three images were obtained. AP, late ral and PA tunnel views were obtained. COMPARISON: No exams were available for comparison FINDINGS: BONES: No acute fracture is present. No bony destructive lesion is seen. There is an old healed prox imal left fibular fracture. JOINTS: The knee is normally aligned. No joint effusion is seen. No loose body. SOFT TISSUE: Normal. IMPRESSION: No acute abnormality. DATA REPOSITORY: RADIATION DOSE DELIVERED:
[2024-04-21] MEDS: Ibuprofen 600 MG TAB PO (20:49)
--- NOTE | 2024-04-22 13:24 | NUR.NOTE ---
Accessed chart for [facility] billing purposes. Nursing Note:
== END 2024-04-21 21:09 | disposition home or self-care (01) ==
LOC: ER 20:54
PROVIDERS: Emergency Provider Emergency Medicine; PCP Family Medicine
DX: M25.562 Pain in left knee (principal); W31.2XXA Contact with powered woodworking and forming machines, initial encounter
CPT/HCPCS: 29505; 73562; 99283